=== PATIENT | male | born 1960 | race Caucasian/White ===

== ENCOUNTER → 2017-10-20 09:24 | Outpatient (CLI) | payer OTHER, SELFPAY ==
--- NOTE | 2017-10-20 09:36 | NM_ITS ---
CLINICAL: 57-year-old male with reported history of carcinoma of the prostate. WHOLE BODY 99m Tc MDP RADIONUCLIDE BONE SCINTIGRAPHY COMPARISON: None available FINDINGS: Following the intravenous administration of 6.8 mCi of 99m Tc MDP, whole body bone images reveal: 1. There is increased radiopharmaceutical concentration identified in the acromioclavicular and sternoclavicular compartments of both shoulders, the right-left wrists, bilateral hands, right and left knee articulations, fifth lumbar vertebra posteriorly on the left, bilateral posterior sacrum, left midfoot. 2. The remaining skeletal structures are scintigraphically unremarkable with normal-appearing renal images and urinary bladder activity identified. An increase in uptake is defined in the bilateral lacrimal bones most consistent with periostitis. NM/Bone Scan Whole Body IMPRESSION: 1. The increase in radiopharmaceutical concentration identified in the bilateral shoulders and knee articulations, right and left wrists, bilateral hands, fifth lumbar vertebra and sacrum, the left midfoot is most consistent with degenerative arthritis. 2. There is no definitive typical scintigraphic evidence of skeletal metastatic disease on the current examination. Electronically Signed: Enrique Mcneal DO at 13:44 EST Tel , Service support ,
== END ==
PROVIDERS: Family Provider Family Medicine; PCP Family Medicine; Visit Provider Urology
DX: C61 Malignant neoplasm of prostate (principal)
CPT/HCPCS: 78306

== ENCOUNTER → 2017-10-24 07:28 | Outpatient (CLI) | payer OTHER, SELFPAY ==
--- NOTE | 2017-10-24 07:32 | CT_ITS ---
STUDY: CT ABDOMEN AND PELVIS WITH CONTRAST REASON FOR EXAM: Male, 57 years old. New diagnosis of prostate cancer and elevated PSA. RADIATION DOSAGE (If Supplied By Facility): CTDIvol = ( 12.01 ) mGy, DLP = ( 1103.68 ) mGycm TECHNIQUE: Transaxial images were obtained from the dome of the diaphragm to the symphysis pubis without oral contrast. 100 ml of Isovue 300 contrast was administered. Sagittal and coronal images were reconstructed. Individualized dose optimization techniques were used for this CT. COMPARISON: None. FINDINGS: Mild increased markings at the lung bases suggestive of bibasilar dependent atelectasis. The visualized portions of the heart are within normal limits. Normal liver. Normal gallbladder and extrahepatic biliary system. Normal spleen. Normal pancreas. Normal bilateral adrenal glands. There is a 2.7 cm x 3.4 cm cyst in the anterior midportion of the right kidney. There is a 1.7 cm x 1.3 cm cyst in the lower posterior aspect of the left kidney. Normal visualized stomach. Normal small intestine. There are scattered colonic diverticula consistent with diverticulosis. The appendix is visualized and appears normal. There is scattered atherosclerotic calcification of the abdominal aorta, without a demonstrated aneurysm. Normal inferior vena cava. There is borderline retroperitoneal lymphadenopathy with enlarged nodes no greater than 10mm in the short axis diameter. Normal urinary bladder. There are prostatic calcifications. The prostate measures 5.2 cm x 4.2 cm. Small benign appearing bilateral axillary lymph nodes. Normal abdominal wall. Disc space narrowing and degeneration with spondylosis at the L4-L5 and L5-S1 levels. Straightening of the normal lumbar lordosis. CT/Abdomen/Pelvis WITH Contrast IMPRESSION: Bilateral renal cysts. Prostatic enlargement with central prostatic calcifications. Electronically Signed: Rodo Crowley MD at 10:30 EST Tel [phone], Service support ,
[2017-10-24 07:51] LABS: CREATININE FINGERSTICK 1.1 mg/dL (0.70-1.30); EGFR FINGERSTICK > 60.0000 mL/min (>60)
== END ==
PROVIDERS: Family Provider Family Medicine; PCP Family Medicine; Visit Provider Urology
DX: Z01.812 Encounter for preprocedural laboratory examination (principal); C61 Malignant neoplasm of prostate
CPT/HCPCS: 74177; Q9967